=== PATIENT | female | born 2000 | race Caucasian/White ===

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

== ENCOUNTER → 2022-09-01 | Emergency (ER) | payer OTHER ==
[~2022-09-01] VITALS: Ht 152.4 cm; Wt 93.0 kg
[~2022-09-01] MED LIST: OXYM15MI4 NS
[2022-09-01 21:06] VITALS: BP 150/75
--- NOTE | 2022-09-01 21:06 | NUR ---
BIBSELF C/O SINUS CONGESTION X3 DAYS. PT A/OX. TOLERATING R/A WELL WITH NO RESP DISTRESS.
== END | disposition home or self-care (01) ==
LOC: ER 17:16
DX: R09.81 Nasal congestion (principal)